=== PATIENT | male | born 1965 ===

== ENCOUNTER 2022-03-07 15:09 | Outpatient (REF) | payer OTHER, SELFPAY ==
[2022-03-07 16:33] LABS: MANUAL DIFF FLAG NO
[2022-03-07 16:44] LABS: Basophils Percent Auto 0.5 % (0-2); Eosinophils Absolute Auto 0.1 X10*3/uL (0.0-0.4); Eosinophils Percent Auto 1.5 % (0-4); Hematocrit 45.3 % (42.0-52.0); Hemoglobin 15.7 g/dl (14.0-18.0); Imm Gran Abs Auto 0.01 X10*3/uL (0.00-0.03); Imm Gran Pct Auto 0.2 % (0.0-0.4); Lymphocytes Absolute Auto 1.6 X10*3/uL (1.2-4.9); Lymphocytes Percent Auto 37.7 % (20-40); Mean Corpuscular HGB Conc 34.7 g/dl (31.0-36.0); Mean Corpuscular Hemoglobin 31.1 pg (27.0-33.0); Mean Corpuscular Volume 89.7 fL (80.0-98.0); Mean Platelet Volume 9.8 fL (9.4-12.4); Monocytes Absolute Auto 0.5 X10*3/uL (0.1-1.2); Monocytes Percent Auto 11.4 % (2-11); Neutrophils Percent Auto 48.7 % (45-73); Platelet Count 126 X10*3/uL (160-400); Red Blood Count 5.05 X10*6/uL (4.60-5.80); Red Cell Distribution Width 12.8 % (11.0-16.0); White Blood Count 4.1 X10*3/uL (4.8-10.8)
[2022-03-07 16:46] LABS: Estimated Average Glucose 105 mg/dL; Hemoglobin A1c % 5.3 %
[2022-03-07 16:58] LABS: Alanine Aminotransferase 95 U/L (0-40); Albumin Level 4.3 g/dL (3.5-5.0); Alkaline Phosphatase 79 U/L (39-117); Anion Gap 15 (12-20); Aspartate Amino Transferase 79 U/L (5-37); Bilirubin Total 0.7 mg/dL (0.0-1.0); Blood Urea Nitrogen 19 mg/dL (9-16); Calcium 9.2 mg/dL (8.4-10.2); Carbon Dioxide 24 mmol/L (22-29); Chloride 102 mmol/L (96-108); Cholesterol 187 mg/dL; Estimated Glomerular Filt Rate > 60; Glucose Random 76 mg/dL (60-115); HDL Cholesterol 62 mg/dL; LDL Cholesterol Calculated 89 mg/dl; Potassium 4.2 mmol/L (3.3-5.1); Sodium 137 mmol/L (135-145); Total Protein 7.8 g/dL (6.5-8.0); Triglycerides 180 mg/dL
[2022-03-15 08:02] LABS: Codeine, Ur NEGATIVE; Hydrocodone, Ur NEGATIVE; Hydromorphone, Ur NEGATIVE; Morphine, Ur NEGATIVE; Norhydrocodone, Ur NEGATIVE; Noroxycodone, Ur NEGATIVE; Oxycodone, Ur NEGATIVE; Oxymorphone, Ur NEGATIVE
== END 2022-03-07 15:10 | disposition home or self-care (01) ==
LOC: HO.HMGCLDS 15:09
PROVIDERS: Visit Provider Nurse Practitioner Psychiatric/Mental Health
DX: Z79.899 Other long term (current) drug therapy (principal)
CPT/HCPCS: 80053; 80061; 80364; 80365; 83036; 85025

== ENCOUNTER 2022-08-31 17:28 | Emergency (ER) | payer OTHER, SELFPAY ==
--- NOTE | ~2022-08-31 | CT_ITS ---
EXAM: CT scan of the head and cervical spine. INDICATION: Reason for Exam head and neck pain s/p fall TECHNIQUE: A noncontrast CT scan was performed from the skull base to the vertex. A noncontrast CT scan of the cervical spine was performed from the base of the skull through T1 at 2.5 mm and 1.25 mm collimation. Coronal and sagittal reformats were obtained at the acquisition workstation. This CT examination was performed using dose optimization techniques as appropriate, variously including the following: *Automated exposure control *Adjustment of mA and/or kV according to patient size (this includes techniques or standardized protocols for targeted exams where dose is matched to indication/reason for exam; i.e. extremities or head) *Use of iterative reconstruction technique DLP: 656 and 407 mGy-cm COMPARISON: None FINDINGS: Head: There is no evidence of acute intracranial hemorrhage or territorial infarction. Vicente-white matter differentiation is preserved. No abnormal mass effect or midline shift. No extra-axial fluid collections. No abnormal attenuation is demonstrated within the brain parenchyma. Scattered periventricular and deep white matter hypodensities consistent with microangiopathy. The ventricles and sulcal spaces are proportional without hydrocephalus. Proportional prominence of the ventricles and sulcal spaces. No acute osseous or soft tissue abnormalities. The mastoid air cells and visualized portions of the paranasal sinuses are well aerated. Cervical Spine: The atlantooccipital and atlantoaxial articulations intact. Moderate disc space narrowing particularly at C3-C4 consistent with degenerative disc disease. Otherwise, there is anatomic alignment of the vertebral bodies and posterior elements. No evidence of acute fracture or subluxation. The vertebral body heights and disc spaces are otherwise maintained. There is no prevertebral soft tissue swelling. The thyroid gland and remaining cervical soft tissues are normal in appearance. The lung apices demonstrate no abnormalities. CT/CT cervical spine wo IV con IMPRESSION: No acute intracranial pathology. No acute fracture cervical spine.
[2022-08-31 17:36] VITALS: BP 142/98; PULSE 107; RESP 18; O2SAT 94; BMI 21.1
--- NOTE | 2022-08-31 17:38 | ED_ITS ---
HPI - Fall General Chief Complaint: Fall Stated Complaint: fall ETOH Time Seen by Provider: 08/31/22 17:31 Source: patient and EMS Mode of arrival: EMS History of Present Illness HPI Narrative: Patient had few drinks earlier today was with his friends in his house lost balance and fell hitting his back of her head to the concrete no loss of son consciousness unsteady on his feet refused C-collar by EMS no vomiting no other complaints patient has a big hematoma with laceration back of his head Related Data Allergies Allergy/AdvReac Type Severity Reaction Status Date / Time acetaminophen Allergy Unknown Verified 03/22/14 00:00 [Tylenol-Codeine #3] codeine [Tylenol-Codeine #3] Allergy Unknown Verified 03/22/14 00:00 No Known Allergies Allergy Unverified 08/02/20 15:02 Review of Systems Review of Systems: Yes all other systems are reviewed and are negative [facility] Social History Social History Advance Directives: No Advance Directives Information Provided: No Physical Exam Vital Signs: Vital Signs: Last Vital Signs Temp 97.7 F 08/31/22 18:10 Pulse 105 H 08/31/22 18:10 Resp 23 H 08/31/22 18:10 BP 124/90 H 08/31/22 18:10 Pulse Ox 93 08/31/22 18:10 O2 Del Method 08/31/22 18:10 O2 Flow Rate 2 08/31/22 18:10 BMI result Body Mass Index 21.1 Appearance: Alert. Oriented X3. No acute distress. Intoxicated Eyes: PERRLA, No Nystagmus HEENT: Pharynx normal. Oral Mucosa moist hematoma with small laceration to back of the head dried blood in the mouth Neck: Normal inspection. Neck supple. No midline tenderness CVS: Normal heart rate and rhythm. Pulses normal. Respiratory: No respiratory distress. Equal air entry bilateral, no wheezing/rales/rhonchi Abdomen: Soft and nontender. Bowel sounds are present, no mass palpable, no CVA tenderness Skin: Skin warm and dry. Normal skin color. Normal skin turgor. Extremities: No lower extremity edema. No calf tenderness Neuro: Oriented X 3. No motor deficit. No sensory deficit.No cerebellar signs , cranial nerves II-XII intact Procedures Laceration Laceration 1: Site: scalp Size (cm): 4 Description: stellate Size (cm): other (8 sivlino) MDM - Fall MDM Narrative Medical decision making narrative: 22;10Patient intoxicated and fell with laceration of the scalp head CT C-spine negative alcohol level was 320 at this time patient is ambulatory and steady gait does not want to stay here for detox evaluation will discharge patient home Lab Data Attestation: I reviewed the patient's lab results. Result diagrams: 08/31/22 18:09 08/31/22 18:09 Labs: Lab Results 08/31/22 08/31/22 08/31/22 Range/Units 18:09 18:09 18:09 WBC 2.7 L (4.8-10.8) X10*3/uL RBC 4.60 (4.60-5.80) X10*6/uL Hgb 15.2 (14.0-18.0) g/dl Hct 43.9 (42.0-52.0) % MCV 95.4 (80.0-98.0) fL MCH 33.0 (27.0-33.0) pg MCHC 34.6 (31.0-36.0) g/dl RDW 14.3 (11.0-16.0) % Plt Count 63 L D (160-400) X10*3/uL MPV 10.1 (9.4-12.4) fL Immature Gran % (Auto) 0.4 (0.0-0.4) % Neut % (Auto) 39.7 L (45-73) % Lymph % (Auto) 43.1 H (20-40) % [place] % (Auto) 14.6 H (2-11) % Eos % (Auto) 1.5 (0-4) % Baso % (Auto) 0.7 (0-2) % Lymph # (Auto) 1.2 (1.2-4.9) X10*3/uL [place] # (Auto) 0.4 (0.1-1.2) X10*3/uL Eos # (Auto) 0.0 (0.0-0.4) X10*3/uL Baso # (Auto) 0.0 (0.0-0.2) X10*3/uL Abs Immat Gran (auto) 0.01 (0.00-0.03) X10*3/uL Absolute Neuts (auto) 1.1 L (2.0-8.3) x10*3/uL Absolute Nucleated RBC 0.000 (0.0-0.012) X10*3/uL Nucleated RBC % (auto) 0.0 (0.0-0.2) /100WBC Sodium 141 (135-145) mmol/L Potassium 4.0 (3.3-5.1) mmol/L Chloride 105 (96-108) mmol/L Carbon Dioxide 22 (22-29) mmol/L Anion Gap 18 (12-20) BUN 11 (9-16) mg/dL Creatinine 0.77 (0.5-1.4) mg/dL Estim Creat Clear Calc 107.3 Estimated GFR > 60 Random Glucose 103 D (60-115) mg/dL Calcium 8.6 D (8.4-10.2) mg/dL Magnesium 2.2 (1.6-2.6) mg/dL Total Bilirubin 0.5 (0.0-1.0) mg/dL AST 99 H (5-37) U/L ALT 74 H (0-40) U/L Alkaline Phosphatase 98 D (39-117) U/L Total Protein 7.5 (6.5-8.0) g/dL Albumin 4.1 (3.5-5.0) g/dL Ethyl Alcohol 320 H* mg/dL Discharge Plan Discharge Clinical Impression: Alcohol intoxication, Head injuries Patient Disposition: Home, Self-Care Instructions: Head Injury (ED), Alcohol Intoxication (ED) Additional Instructions: Do not drink alcohol Staple removal in 7-10 days Care as advised Interventions: ED Discharge Assessment Last Done: 08/31/22 22:14
[2022-08-31 18:10] VITALS: BP 124/90; PULSE 105; RESP 23; TEMP 36.5; O2SAT 93
[2022-08-31 18:18] LABS: MANUAL DIFF FLAG NO
[2022-08-31 18:23] LABS: Basophils Percent Auto 0.7 % (0-2); Eosinophils Percent Auto 1.5 % (0-4); Hematocrit 43.9 % (42.0-52.0); Hemoglobin 15.2 g/dl (14.0-18.0); Imm Gran Abs Auto 0.01 X10*3/uL (0.00-0.03); Imm Gran Pct Auto 0.4 % (0.0-0.4); Lymphocytes Absolute Auto 1.2 X10*3/uL (1.2-4.9); Lymphocytes Percent Auto 43.1 % (20-40); Mean Corpuscular HGB Conc 34.6 g/dl (31.0-36.0); Mean Corpuscular Volume 95.4 fL (80.0-98.0); Mean Platelet Volume 10.1 fL (9.4-12.4); Monocytes Absolute Auto 0.4 X10*3/uL (0.1-1.2); Monocytes Percent Auto 14.6 % (2-11); Neutrophils Absolute Auto 1.1 x10*3/uL (2.0-8.3); Neutrophils Percent Auto 39.7 % (45-73); Red Cell Distribution Width 14.3 % (11.0-16.0); White Blood Count 2.7 X10*3/uL (4.8-10.8)
[2022-08-31 18:28] LABS: Platelet Count 63 X10*3/uL (160-400)
[2022-08-31 18:30] LABS: Ethanol 320 mg/dL
[2022-08-31 18:36] LABS: Alanine Aminotransferase 74 U/L (0-40); Albumin Level 4.1 g/dL (3.5-5.0); Alkaline Phosphatase 98 U/L (39-117); Anion Gap 18 (12-20); Aspartate Amino Transferase 99 U/L (5-37); Bilirubin Total 0.5 mg/dL (0.0-1.0); Blood Urea Nitrogen 11 mg/dL (9-16); Calcium 8.6 mg/dL (8.4-10.2); Carbon Dioxide 22 mmol/L (22-29); Chloride 105 mmol/L (96-108); Creatinine Clr Calc Pharmacy 107.3; Estimated Glomerular Filt Rate > 60; Glucose Random 103 mg/dL (60-115); Magnesium 2.2 mg/dL (1.6-2.6); Sodium 141 mmol/L (135-145); Total Protein 7.5 g/dL (6.5-8.0)
--- NOTE | 2022-08-31 18:41 | PC.NURSE ---
patient a/o to self.etoh in system . unable to asses at this moment has no memory of what happened or what brought him in ED presented to Ed for fall . Labs have been drawn . patient has been to CT . Provider says for patient to sober for discharge .
--- NOTE | 2022-08-31 19:00 | PC.NURSE ---
Patient advised to sit into the bed for safety, patient redirected multiple times by various staff members. Patient was directed to lay on the stretcher by staff and as staff was walking out of the room the patient jumped up OOB and landed on his feet unsteady and fell onto his buttock then backwards onto the floor. +head strike thus opening up the old lac from prior fall today. MD Wheeler aware and in room to see patient. Bleeding controlled, Wound stapled. NO further imaging per MD Wheeler. Patient sitting back in bed but is difficult to redirect and needs multiple verbal coaching. 1:1 sitter at bedside but does not deter patient from trying to jump and run out of room. Recliner provided for comfort but patient jumping out of recliner. Attempting to call family or friend for a ride home. Patient ate a snack.
== END 2022-08-31 22:18 | disposition home or self-care (01) ==
PROVIDERS: Emergency Provider Internal Medicine
DX: S01.01XA Laceration without foreign body of scalp, initial encounter (principal); F10.129 Alcohol abuse with intoxication, unspecified; M54.2 Cervicalgia; R51.9 Headache, unspecified; Y90.8 Blood alcohol level of 240 mg/100 ml or more; W01.0XXA Fall on same level from slipping, tripping and stumbling without subsequent striking against object, initial encounter; Y93.9 Activity, unspecified; Y92.9 Unspecified place or not applicable; Y99.9 Unspecified external cause status; Z79.899 Other long term (current) drug therapy
CPT/HCPCS: 12002; 36415; 70450; 72125; 80053; 82077; 83735; 85025; 99283

== ENCOUNTER 2022-09-10 18:09 | Emergency (ER) | payer OTHER, SELFPAY | END 2022-09-10 20:06 | disposition left against medical advice (07) | PROVIDERS: Emergency Provider Emergency Medicine | DX: Z48.02 Encounter for removal of sutures (principal) ==

== ENCOUNTER 2023-01-25 17:03 | Emergency (ER) | payer OTHER, SELFPAY ==
--- NOTE | ~2023-01-25 | CT_ITS ---
Indication: Trauma EXAMINATION: CT of the brain and cervical spine. This CT examination was performed using dose optimization techniques as appropriate, variously including the following: *Automated exposure control *Adjustment of mA and/or kV according to patient size (this includes techniques or standardized protocols for targeted exams where dose is matched to indication/reason for exam; i.e. extremities or head) *Use of iterative reconstruction technique. Radiation dose 913. Comparison previous dated 08/31/2022. Cervical spine; There is limitation from motion in the upper cervical region. Given this there is no evidence for acute fracture or dislocation. CT brain; No midline shift. No mass effect. No hemorrhage. The basal cisterns appear patent. The posterior fossa is grossly within normal limits. No extra-axial collection. Review of the bone windows does not demonstrate evidence for fracture. CT/CT head/brain wo IV con IMPRESSION: There is motion which limits evaluation of the upper cervical spine. If indicated consider repeat scanning. Otherwise no acute fracture or dislocation is seen. Negative acute noncontrast CT of the brain.
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
--- NOTE | ~2023-01-25 | CT_ITS ---
Indication: Trauma EXAMINATION: CT of the brain and cervical spine. This CT examination was performed using dose optimization techniques as appropriate, variously including the following: *Automated exposure control *Adjustment of mA and/or kV according to patient size (this includes techniques or standardized protocols for targeted exams where dose is matched to indication/reason for exam; i.e. extremities or head) *Use of iterative reconstruction technique. Radiation dose 913. Comparison previous dated 08/31/2022. Cervical spine; There is limitation from motion in the upper cervical region. Given this there is no evidence for acute fracture or dislocation. CT brain; No midline shift. No mass effect. No hemorrhage. The basal cisterns appear patent. The posterior fossa is grossly within normal limits. No extra-axial collection. Review of the bone windows does not demonstrate evidence for fracture. CT/CT cervical spine wo IV con IMPRESSION: There is motion which limits evaluation of the upper cervical spine. If indicated consider repeat scanning. Otherwise no acute fracture or dislocation is seen. Negative acute noncontrast CT of the brain.
[2023-01-25 17:07] VITALS: BP 140/90; PULSE 100; O2SAT 95
--- NOTE | 2023-01-25 17:07 | ECG_ITS ---
Test Reason : WEAKNESS/FALL Blood Pressure : / mmHG Vent. Rate : 098 BPM Atrial Rate : 098 BPM P-R Int : 150 ms QRS Dur : 134 ms QT Int : 368 ms P-R-T Axes : 048 054 046 degrees QTc Int : 469 ms Normal sinus rhythm Non-specific intra-ventricular conduction block Nonspecific T wave abnormality Abnormal ECG No previous ECGs available Referred By: Farhad Elam Electronically Signed By:Blayne Donovan
[2023-01-25 17:08] VITALS: BP 119/87; PULSE 99; RESP 16; TEMP 36.4; O2SAT 91; BMI 27.4
--- NOTE | 2023-01-25 17:15 | PC.NURSE ---
patient awake alert to self only, pt etoh, pt encouraged to stay in the bed as the patient is attempting to get oob and ambulate- pt has unsteady gait at this time.
--- NOTE | 2023-01-25 17:26 | ED_ITS ---
HPI - Fall General Chief Complaint: Fall Stated Complaint: etoh/fall Time Seen by Provider: 01/25/23 17:07 Source: patient and EMS Mode of arrival: EMS Limitations: other (Intoxicated) History of Present Illness HPI Narrative: 57-year-old male presents the emergency department with alcohol intoxication and suspected fall, patient extremely intoxicated has been drinking all day unable to tell me how much she has been drinking, fell hit his face, unsure of loss of consciousness. Patient poor historian tells me he is not on a blood thinner. Unable to verbalize if he has medical complaints or not. Limited history and unable to obtain accurate review of systems secondary to acute alcohol intoxication. Patient arrives with a GCS of 15 however. Related Data Allergies Allergy/AdvReac Type Severity Reaction Status Date / Time acetaminophen Allergy Unknown Verified 03/22/14 00:00 [Tylenol-Codeine #3] codeine [Tylenol-Codeine #3] Allergy Unknown Verified 03/22/14 00:00 No Known Allergies Allergy Unverified 08/02/20 15:02 Review of Systems Review of Systems: Yes Unobtainable due to mental status PMFSH Past Medical History Attestation statement: The following information was validated with the patient. Source: old records reviewed and nursing notes reviewed Social History Social History Alcohol intake: current Alcohol intake frequency: 3 or more drinks per day Smoked in Last 30 Days: No Use of substances other than those prescribed or required for medical reasons: Yes Substance Use Type: Marijuana Advance Directives: No Advance Directives Information Provided: No Physical Exam Vital Signs: Vital Signs: Last Vital Signs Temp 97.6 F 01/25/23 17:08 Pulse 99 01/25/23 17:08 Resp 16 01/25/23 17:08 BP 119/87 01/25/23 17:08 Pulse Ox 91 L 01/25/23 17:08 O2 Del Method 01/25/23 17:08 BMI result Body Mass Index 27.4 vss Appearance: Alert.? Oriented X3.? No acute distress.? Head: Normocephalic, no step-offs or deformities + abrasions to b/l sides of face Eyes: Pupils equal, round and reactive to light.? ENT: Pharynx normal.? Neck: Normal inspection.? Neck supple.? CVS: Normal heart rate and rhythm.? Pulses normal.? Respiratory: No respiratory distress.? Breath sounds normal.? Abdomen: Soft and nontender.? Skin: Skin warm and dry.? Normal skin color.? Normal skin turgor.? Extremities: No lower extremity edema.? No calf ttp. 5/5 strength to bilateral upper and lower extremities Back: No midline tenderness, no C-spine tenderness, full range of motion, no CVA tenderness bilaterally Neuro: Oriented X 3.? No motor deficit.? No sensory deficit. CN 2-12 intact Course Reevaluation(s) Reevaluation #1: CBC appears to be around patient's baseline. With a thrombocytopenia. Chemistry without electrolyte abnormalities requiring intervention. Transaminases elevated chronically likely secondary to ethanol use. Troponin negative, EKG nonischemic. Ethanol level 366. COVID negative. CT of cervical spine unremarkable slightly limited by the motion however no acute fractures or dislocations, patient does not want another 1, negative acute noncontrast CT of the brain. There is a 1.6 irregularly solid lung nodule in the right upper lobe cannot rule out neoplasm, educated patient on this attached results to discharge elevation of left hemidiaphragm unchanged from May 2013, no evidence of solid organ injury. Partial compression fracture of L1 noted of indeterminate age educated patient on this diagnosis in follow-up, will have him see [facility], degenerative disc itis also noted. Patient has no focal neuro deficits no signs of cord compression. Patient agitated and would like to go home however intoxicated this is not safe. I did try to call both of patient's em ergency contacts without success. Will continue to try calling. Patient can be discharged home with safe ride. Educated patient on diagnosis and treatment plan, answered all question, patient verbalizes understanding. At this time patient will be discharged home, advised to return with new or worsening symptoms. Educated on worrisome signs and symptoms and when to return. At this time I feel comfortable discharge home. Offered patient detox he is refusing. Patient will be placed into observation until he finds a sober ride. Educated patient on diagnosis and treatment plan, answered all question, patient verbalizes understanding. At this time patient will be discharged home, advised to return with new or worsening symptoms. Educated on worrisome signs and symptoms and when to return. At this time I feel comfortable discharge home. Time: 19:37 Medical Decision Making Medical Decision Making [facility] Narrative: [id number] 57-year-old male presents with alcohol intoxication with suspected fall, unclear history, unable to obtain review of systems patient extremely intoxicated. States he was drinking all day. Physical exam with abrasions to face. Neuro nonfocal. Regular rate and rhythm. Lungs clear. Abdomen soft nontender nondistended. Likely alcohol intoxication. Will rule out traumatic injuries and head, cervical spine, chest, abdomen and pelvis. Will also rule out polysubstance abuse and electrolyte abnormalities. Plan at this time labs, imaging, urine. To note, patient adamantly refusing IV therefore ideally scans would be done with IV contrast however patient adamantly refusing. Will obtain dry scans. He is agreeable to this. Differential Diagnosis Differential Diagnoses: The differential diagnosis associated with the presentation includes Likely alcohol intoxication. Will rule out traumatic injuries and head, cervical spine, chest, abdomen and pelvis. Will also rule out polysubstance abuse and electrolyte abnormalities. Admission/Observation Consideration of admission/observation: Escalation of care including admission/observation considered Lab Data 01/25/23 18:27 01/25/23 18:27 Labs: Lab Results 01/25/23 01/25/23 01/25/23 Range/Units 18:27 18:27 18:27 WBC 2.8 L (4.8-10.8) X10*3/uL RBC 4.77 (4.60-5.80) X10*6/uL Hgb 14.7 (14.0-18.0) g/dl Hct 44.1 (42.0-52.0) % MCV 92.5 (80.0-98.0) fL MCH 30.8 (27.0-33.0) pg MCHC 33.3 (31.0-36.0) g/dl RDW 15.3 (11.0-16.0) % Plt Count 101 L D (160-400) X10*3/uL MPV 10.3 (9.4-12.4) fL Immature Gran % (Auto) 0.4 (0.0-0.4) % Neut % (Auto) 55.4 (45-73) % Lymph % (Auto) 35.3 (20-40) % [place] % (Auto) 7.8 (2-11) % Eos % (Auto) 0.4 (0-4) % Baso % (Auto) 0.7 (0-2) % Lymph # (Auto) 1.0 L (1.2-4.9) X10*3/uL [place] # (Auto) 0.2 (0.1-1.2) X10*3/uL Eos # (Auto) 0.0 (0.0-0.4) X10*3/uL Baso # (Auto) 0.0 (0.0-0.2) X10*3/uL Abs Immat Gran (auto) 0.01 (0.00-0.03) X10*3/uL Absolute Neuts (auto) 1.6 L (2.0-8.3) x10*3/uL Absolute Nucleated RBC 0.000 (0.0-0.012) X10*3/uL Nucleated RBC % (auto) 0.0 (0.0-0.2) /100WBC Smear Tech's Comments VERIFIED PT (10.0-13.1) SEC INR (0.9-1.1) Sodium 139 (135-145) mmol/L Potassium 3.6 (3.3-5.1) mmol/L Chloride 103 (96-108) mmol/L Carbon Dioxide 25 (22-29) mmol/L Anion Gap 15 (12-20) BUN 9 (9-16) mg/dL Creatinine 0.73 (0.5-1.4) mg/dL Estim Creat Clear Calc 110.3 Estimated GFR > 60 Random Glucose 137 H (60-115) mg/dL Calcium 8.1 L (8.4-10.2) mg/dL Magnesium 2.2 (1.6-2.6) mg/dL Total Bilirubin 0.5 (0.0-1.0) mg/dL AST 89 H (5-37) U/L ALT 60 H (0-40) U/L Alkaline Phosphatase 78 (39-117) U/L Troponin I High Sens (<3.5-35.0) ng/L Total Protein 7.5 (6.5-8.0) g/dL Albumin 3.9 (3.5-5.0) g/dL Ethyl Alcohol mg/dL COVID-19 (NOLAN) Negative (Negative) COVID-19 Clin Com See Note 01/25/23 01/25/23 01/25/23 Range/Units 18:27 18:27 18:27 WBC (4.8-10.8) X10*3/uL RBC (4.60-5.80) X10*6/uL Hgb (14.0-18.0) g/dl Hct (42.0-52.0) % MCV (80.0-98.0) fL MCH (27.0-33.0) pg MCHC (31.0-36.0) g/dl RDW (11.0-16.0) % Plt Count (160-400) X10*3/uL MPV (9.4-12.4) fL Immature Gran % (Auto) (0.0-0.4) % Neut % (Auto) (45-73) % Lymph % (Auto) (20-40) % [place] % (Auto) (2-11) % Eos % (Auto) (0-4) % Baso % (Auto) (0-2) % Lymph # (Auto) (1.2-4.9) X10*3/uL [place] # (Auto) (0.1-1.2) X10*3/uL Eos # (Auto) (0.0-0.4) X10*3/uL Baso # (Auto) (0.0-0.2) X10*3/uL Abs Immat Gran (auto) (0.00-0.03) X10*3/uL Absolute Neuts (auto) (2.0-8.3) x10*3/uL Absolute Nucleated RBC (0.0-0.012) X10*3/uL Nucleated RBC % (auto) (0.0-0.2) /100WBC Smear Tech's Comments PT 11.3 (10.0-13.1) SEC INR 1.0 (0.9-1.1) Sodium (135-145) mmol/L Potassium (3.3-5.1) mmol/L Chloride (96-108) mmol/L Carbon Dioxide (22-29) mmol/L Anion Gap (12-20) BUN (9-16) mg/dL Creatinine (0.5-1.4) mg/dL Estim Creat Clear Calc Estimated GFR Random Glucose (60-115) mg/dL Calcium (8.4-10.2) mg/dL Magnesium (1.6-2.6) mg/dL Total Bilirubin (0.0-1.0) mg/dL AST (5-37) U/L ALT (0-40) U/L Alkaline Phosphatase (39-117) U/L Troponin I High Sens < 3.5 (<3.5-35.0) ng/L Total Protein (6.5-8.0) g/dL Albumin (3.5-5.0) g/dL Ethyl Alcohol 366 H* mg/dL COVID-19 (NOLAN) (Negative) COVID-19 Clin Com Discharge Plan Discharge Clinical Impression: Alcohol intoxication, Concussion, Fall, Closed compression fracture of L1 vertebra, Lung nodule Patient Disposition: Home, Self-Care Instructions: Concussion (ED), Post Concussion Syndrome (ED), Fall Prevention (ED) Additional Instructions: Take your medications as prescribed. If you were prescribed antibiotics today, it is important that you take your medication to their entirety, do not skip any doses, do not finish them early. Follow-up with your primary care provider this week. Return to the emergency department with new or worsening symptoms. Such as fevers, chills, chest pain, shortness of breath, nausea, vomiting, dizziness, headache, vision changes, lethargy In case of emergency call 911 CT/CT abdomen pelvis and chest wo IV con IMPRESSION: ? *? There is a 1.6 cm slightly irregular solid noncalcified lung nodule right upper lobe. Cannot rule out neoplasm. Would recommend correlation with follow-up contrast enhanced CT scan or PET/CT. ? *? Marked elevation of left hemidiaphragm, the stomach and the spleen are almost entirely in the chest, this is chronic and seen on the chest x-ray from May 2013. ? *? No CT evidence of solid organ injury. Exam is limited due to lack of contrast. ? *? There is partial compression fracture superior endplate of L1 indeterminant age. ? *? Degenerative discitis reaction in the endplates at L4-L5 and L5-S1. ? *? Large emphysematous bleb left upper lobe 6 cm. ? *? Hypodense liver suggesting hepatic steatosis. ? *? Coronary calcifications. ? Various management parameters for solitary pulmonary nodules are in the literature. According to the UPDATED 2017 Fleischner Society recommendations, the advised follow-up imaging for a single solid nodule measuring 8 mm or greater is:? Consider CT, PET/CT, or tissue sampling at 3 months. ? Reference: Guidelines for Management of Incidental Pulmonary Nodules Detected on CT Images: From the Fleischner Society 2017. ? (Referring physician staff is being called, to be alerted of the above findings and recommendations.) ? KP CT/CT head/brain in cervical spine wo IV con IMPRESSION: There is motion which limits evaluation of the upper cervical spine. If indicated consider repeat scanning. Otherwise no acute fracture or dislocation is seen. ? Negative acute noncontrast CT of the brain. Referrals: Physician,Unknown J [Primary Care Provider] - 2 days Stand Alone Forms: Work/School Release
--- NOTE | 2023-01-25 18:15 | PC.NURSE ---
pt to ct scan
--- NOTE | 2023-01-25 18:28 | PC.NURSE ---
labs drawn, VSS.
[2023-01-25 18:34] LABS: Basophils Percent Auto 0.7 % (0-2); Imm Gran Abs Auto 0.01 X10*3/uL (0.00-0.03); Imm Gran Pct Auto 0.4 % (0.0-0.4); MANUAL DIFF FLAG SCAN; Monocytes Absolute Auto 0.2 X10*3/uL (0.1-1.2); PLT CLUMP 1; SCAN SMEAR FLAG 1
[2023-01-25 18:36] LABS: Eosinophils Percent Auto 0.4 % (0-4); Hematocrit 44.1 % (42.0-52.0); Hemoglobin 14.7 g/dl (14.0-18.0); Lymphocytes Percent Auto 35.3 % (20-40); Mean Corpuscular HGB Conc 33.3 g/dl (31.0-36.0); Mean Corpuscular Hemoglobin 30.8 pg (27.0-33.0); Mean Corpuscular Volume 92.5 fL (80.0-98.0); Mean Platelet Volume 10.3 fL (9.4-12.4); Monocytes Percent Auto 7.8 % (2-11); Neutrophils Absolute Auto 1.6 x10*3/uL (2.0-8.3); Neutrophils Percent Auto 55.4 % (45-73); Red Blood Count 4.77 X10*6/uL (4.60-5.80); Red Cell Distribution Width 15.3 % (11.0-16.0)
[2023-01-25 18:39] LABS: Platelet Count 101 X10*3/uL (160-400); White Blood Count 2.8 X10*3/uL (4.8-10.8)
[2023-01-25 18:40] LABS: Prothrombin Time 11.3 SEC (10.0-13.1); SLIDE REVIEW VERIFIED
[2023-01-25 18:46] LABS: Ethanol 366 mg/dL
[2023-01-25 18:47] LABS: COVID-19 Test Negative (Negative); IDNOW Serial# BCCEAD1C
[2023-01-25 18:48] LABS: Alanine Aminotransferase 60 U/L (0-40); Albumin Level 3.9 g/dL (3.5-5.0); Alkaline Phosphatase 78 U/L (39-117); Anion Gap 15 (12-20); Aspartate Amino Transferase 89 U/L (5-37); Bilirubin Total 0.5 mg/dL (0.0-1.0); Blood Urea Nitrogen 9 mg/dL (9-16); Calcium 8.1 mg/dL (8.4-10.2); Carbon Dioxide 25 mmol/L (22-29); Chloride 103 mmol/L (96-108); Creatinine Clr Calc Pharmacy 110.3; Estimated Glomerular Filt Rate > 60; Glucose Random 137 mg/dL (60-115); Magnesium 2.2 mg/dL (1.6-2.6); Potassium 3.6 mmol/L (3.3-5.1); Sodium 139 mmol/L (135-145); Total Protein 7.5 g/dL (6.5-8.0)
--- NOTE | 2023-01-25 18:53 | PC.NURSE ---
patient is attempting to ambulate, pt states he drank fireball, pt given a turkey sandwich to eat but is stating he is leaving because he is working in the morning. this nurse attempting to keep patient from trying to leave and stated he needed to eat and sober up.
[2023-01-25 18:57] LABS: Troponin-I High Sensitivity < 3.5 ng/L (<3.5-35.0)
--- NOTE | 2023-01-25 20:54 | PC.NURSE ---
patient awake/alert to person only- pt continuously asking when he can go home, pt was again reoriented to his place and discussed that he was unable to leave until he had a sober ride home or he was clinically sober. pt was unable to give a valid phone number to call, states his family is in [place] and he is living in a motel in [place]. security has been called to assist with patient as he is again requesting to speak with them about his departure.
[2023-01-26] MEDS: Nicotine 21 MG PATCH.TD24 TRANSDERMA (03:19)
[2023-01-26] MEDS: Ibuprofen 600 MG TABLET PO (03:19)
[2023-01-26 04:12] VITALS: BP 126/83; PULSE 86; RESP 17; TEMP 37.1; O2SAT 94
== END 2023-01-26 05:54 | disposition home or self-care (01) ==
PROVIDERS: Physician Assistant; Emergency Provider Emergency Medicine
DX: S06.0XAA Concussion with loss of consciousness status unknown, initial encounter (principal); S32.019A Unspecified fracture of first lumbar vertebra, initial encounter for closed fracture; F10.129 Alcohol abuse with intoxication, unspecified; R91.1 Solitary pulmonary nodule; D69.6 Thrombocytopenia, unspecified; Y90.8 Blood alcohol level of 240 mg/100 ml or more; R51.9 Headache, unspecified; M54.2 Cervicalgia; M54.50 Low back pain, unspecified; M54.6 Pain in thoracic spine; R10.9 Unspecified abdominal pain; W01.0XXA Fall on same level from slipping, tripping and stumbling without subsequent striking against object, initial encounter; Y93.9 Activity, unspecified; Y92.9 Unspecified place or not applicable; Y99.9 Unspecified external cause status; Z20.822 Contact with and (suspected) exposure to COVID-19; Z20.828 Contact with and (suspected) exposure to other viral communicable diseases; Z79.899 Other long term (current) drug therapy; Z71.41 Alcohol abuse counseling and surveillance of alcoholic
CPT/HCPCS: 36415; 70450; 71250; 72125; 74176; 80053; 82077; 83735; 84484; 85025; 85610; 87635; 93005; 99285

== ENCOUNTER 2023-03-14 21:09 | Emergency (ER) | payer OTHER, SELFPAY ==
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
[2023-03-14 21:12] VITALS: BP 142/96; PULSE 88; RESP 16; TEMP 36.6; O2SAT 94; O2SAT 96; BMI 24.1
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
--- NOTE | 2023-03-14 21:54 | PC.NURSE ---
pt refuses lab and ekg md and nurse aware
--- NOTE | 2023-03-14 22:19 | MHC.EDTECH ---
pt refusing labs and EKG
[2023-03-14 22:57] VITALS: BP 119/76; PULSE 82; RESP 18; O2SAT 90
[2023-03-15 02:41] VITALS: BP 109/65; PULSE 96; RESP 16; O2SAT 92
[2023-03-15 08:38] VITALS: BP 128/83; PULSE 82; RESP 16; TEMP 36.9; O2SAT 94
== END 2023-03-15 11:32 | disposition home or self-care (01) ==
PROVIDERS: Emergency Provider Emergency Medicine
DX: F10.120 Alcohol abuse with intoxication, uncomplicated (principal); Y90.9 Presence of alcohol in blood, level not specified; S00.81XA Abrasion of other part of head, initial encounter; V18.0XXA Pedal cycle driver injured in noncollision transport accident in nontraffic accident, initial encounter; Y93.55 Activity, bike riding; Y92.414 Local residential or business street as the place of occurrence of the external cause; Y99.9 Unspecified external cause status
CPT/HCPCS: 70450; 72125; 99284

== ENCOUNTER 2023-04-02 10:06 | Emergency (ER) | payer OTHER, SELFPAY ==
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
[2023-04-02 10:21] VITALS: BP 134/71; PULSE 128; PULSE 142; RESP 18; TEMP 36.6; O2SAT 93; BMI 22.6
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
--- NOTE | 2023-04-02 10:59 | PC.NURSE ---
PT REFUSING LAB WORK, DESPITE MULTIPLE STAFF ATTEMPTING TO OBTAIN
[2023-04-02] MEDS: chlordiazePOXIDE HCl 25 MG CAPSULE PO (11:19)
--- NOTE | 2023-04-02 11:44 | PC.NURSE ---
PT WALKING AROUND THE ED HE IS AWAKE AND WAS AGREEABLE TO MEDICATION. HE CONTINUES TO REFUSE LAB WORK AND POC.
[2023-04-02 11:45] VITALS: PULSE 121; RESP 18
[2023-04-02 11:52] VITALS: BP 120/77; PULSE 108; RESP 16; O2SAT 94
--- NOTE | 2023-04-02 12:31 | PC.NURSE ---
PT APPEARS BETTER, NO LONGER DIAPHORETIC AND LESS ANXIOUS, AWAITING CT RESULTS
== END 2023-04-02 13:00 | disposition left against medical advice (07) ==
PROVIDERS: Emergency Provider Student in an Organized Health Care Education/Training Program; PCP Internal Medicine
DX: F10.10 Alcohol abuse, uncomplicated (principal); Y90.9 Presence of alcohol in blood, level not specified; S00.83XA Contusion of other part of head, initial encounter; S50.311A Abrasion of right elbow, initial encounter; W19.XXXA Unspecified fall, initial encounter; Y93.9 Activity, unspecified; Y92.410 Unspecified street and highway as the place of occurrence of the external cause; Y99.9 Unspecified external cause status
CPT/HCPCS: 70450; 99284

== ENCOUNTER 2023-04-12 12:55 | Emergency (ER) | payer OTHER, SELFPAY ==
[2023-04-12 13:07] VITALS: BP 192/100
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
[2023-04-12 13:11] VITALS: BP 142/70; PULSE 120; RESP 16; TEMP 36.6; O2SAT 92; BMI 24.8
[2023-04-12] MEDS: 0.9 % Sodium Chloride 1,000 ML 999 ML IV (14:23)
[2023-04-12 14:50] VITALS: BP 130/80; PULSE 105; RESP 16; TEMP 36.7; O2SAT 94
== END 2023-04-12 14:53 | disposition home or self-care (01) ==
PROVIDERS: Emergency Provider Internal Medicine; PCP Internal Medicine
DX: T67.5XXA Heat exhaustion, unspecified, initial encounter (principal); X58.XXXA Exposure to other specified factors, initial encounter; Y93.9 Activity, unspecified; Y92.9 Unspecified place or not applicable; Y99.9 Unspecified external cause status
CPT/HCPCS: 99283

== ENCOUNTER 2023-04-15 19:40 | Emergency (ER) | payer OTHER, SELFPAY ==
--- NOTE | 2023-04-15 10:21 | ECG_ITS ---
Test Reason : POSSIBLE OD Blood Pressure : / mmHG Vent. Rate : 098 BPM Atrial Rate : 098 BPM P-R Int : 138 ms QRS Dur : 102 ms QT Int : 372 ms P-R-T Axes : 029 049 056 degrees QTc Int : 474 ms Normal sinus rhythm Minimal voltage criteria for LVH, may be normal variant ( Sokolow-Mckeon ) Septal infarct , age undetermined Abnormal ECG When compared with ECG of 25-JAN-2023 17:43, Septal infarct is now Present Non-specific change in ST segment in Lateral leads Referred By: Imani Segovia Electronically Signed By:CONCHIS FLOWERS MD
[2023-04-15 19:54] VITALS: BP 122/88; BP 136/84; PULSE 101; PULSE 107; RESP 18; TEMP 37; O2SAT 98; O2SAT 99; BMI 24.4
--- NOTE | 2023-04-15 20:02 | ECG_ITS ---
Test Reason : CHEST PAIN Blood Pressure : / mmHG Vent. Rate : 091 BPM Atrial Rate : 091 BPM P-R Int : 144 ms QRS Dur : 088 ms QT Int : 360 ms P-R-T Axes : 065 061 065 degrees QTc Int : 442 ms Normal sinus rhythm Septal infarct (cited on or before 15-APR-2023) Abnormal ECG When compared with ECG of 15-APR-2023 19:51, No significant change was found Referred By: Generic ED Physician Electronically Signed By:CONCHIS FLOWERS MD
[2023-04-15 20:03] VITALS: BP 122/88; PULSE 93; RESP 18; TEMP 36.4; O2SAT 93
--- NOTE | 2023-04-15 20:07 | MHC.EDTECH ---
This Tech assumed care of this PT upon arrival. According to EMS Pt was unresponsive and given Narcan. Pt allowed this Tech to Perform vitals EKG and place him on cardiac cath rn. Pt is very upset and refusing bloodwork at the moment and refusing to change into hospital gown. Pt also claims his work knife and duffle bag is missing
--- NOTE | 2023-04-15 21:05 | ED.GENADULT ---
HPI - General Adult General Chief complaint: General Medical Stated complaint: overdose Time Seen by Provider: 04/15/23 20:38 Source: patient and EMS Mode of arrival: EMS History of Present Illness HPI narrative: 58-year-old male who states that he had a couple nips after work and was sleeping because he was tired. As per EMS report patient had been found unresponsive by a bystander with blue lips and slumped over. Patient states he has used opioids in over 14 years. Denies suicidal ideation and is not interested in detox, he wants to leave. Related Data Previous Rx's Medication Instructions Recorded ibuprofen 600 mg tablet 600 mg PO Q6H PRN fever or pain 04/12/23 #30 tabs Allergies Allergy/AdvReac Type Severity Reaction Status Date / Time acetaminophen Allergy Unknown Verified 03/22/14 00:00 [Tylenol-Codeine #3] codeine [Tylenol-Codeine #3] Allergy Unknown Verified 03/22/14 00:00 No Known Allergies Allergy Unverified 08/02/20 15:02 Review of Systems Review of Systems: Pertinent positives and negatives as stated in HPI PMFSH Past Medical History Source: nursing notes reviewed Medical History Alcohol abuse Social History Social History Alcohol intake: current Alcohol intake frequency: 3 or more drinks per day Alcohol type: other Substance Use Type: Marijuana Advance Directives: No Advance Directives Information Provided: No Physical Exam ED Vital Signs: Vital Signs - 24 hr 04/15/23 19:54 04/15/23 20:03 Temperature 98.6 F 97.6 F Pulse Rate 101 H 93 Respiratory Rate 18 18 Blood Pressure 122/88 122/88 Pulse Oximetry 99 93 Oxygen Delivery Method Room Air Room Air BMI result Body Mass Index 24.4 VITAL SIGNS: Reviewed. GENERAL: Well developed, well nourished, in no acute distress. HEAD: Normocephalic/atraumatic EYES: PERRLA, EOMI EARS: Ext canals without abnormality NOSE: Nares patent bilateral OROPHARYNX: no oral lesions noted, posterior pharynx clear NECK: Supple, no adenopathy LUNGS: Normal breath sounds. No adventitious sounds or accessory muscle use. SpO2<99> CARDIOVASCULAR: Regular rate and rhythm without noted murmurs. ABDOMEN: Soft, non-tender, non-distended with bowel sounds. MUSCULOSKELETAL: No tenderness, deformities, or effusions noted on gross inspection. EXTREMITIES: No cyanosis, clubbing or edema. SKIN: Inspection of the skin reveals no rashes NEUROLOGIC: Alert and oriented x 4. Strength and sensation to light touch were grossly intact x 4. Medical Decision Making Medical Decision Making [facility] Narrative: 58-year-old male found unresponsive, denies suicidal ideation denies wanting detox and denies any use substances other than alcohol. He is noted to ambulate with a steady gait, he is demanding to leave. Patient is otherwise hemodynamically stable for discharge. Differential Diagnosis Please see the discussion above Discharge Plan Discharge Clinical Impression: Overdose Patient Disposition: Home, Self-Care Instructions: Adult Overdose (ED) Additional Instructions: Please follow-up with your primary care provider next 1-2 days and return to the ER for any worsening symptoms. Prescriptions: No Action ibuprofen 600 mg tablet 600 mg PO Q6H PRN (Reason: fever or pain) Qty: 30 0RF
--- NOTE | 2023-04-15 21:36 | MHC.EDTECH ---
PT refused this tech to draw labs. RN made aware. Pt given 2 sandwiches and milk per request
--- NOTE | 2023-04-15 22:28 | MHC.EDTECH ---
Pt complained of chest pain when given his Discharge papers by RN. This Tech Performed a repeat EKG and handed it to the provider
== END 2023-04-15 22:40 | disposition home or self-care (01) ==
PROVIDERS: Emergency Provider Student in an Organized Health Care Education/Training Program
DX: R40.4 Transient alteration of awareness (principal); T50.901A Poisoning by unspecified drugs, medicaments and biological substances, accidental (unintentional), initial encounter; Y92.414 Local residential or business street as the place of occurrence of the external cause; F12.90 Cannabis use, unspecified, uncomplicated; F10.10 Alcohol abuse, uncomplicated; Y90.9 Presence of alcohol in blood, level not specified
CPT/HCPCS: 93005; 99283; 99284

== ENCOUNTER 2023-04-19 14:31 | Emergency (ER) | payer OTHER, SELFPAY ==
[2023-04-19 14:45] VITALS: BP 138/71; PULSE 150; O2SAT 75
[2023-04-19 15:02] VITALS: BP 86/66; PULSE 125; RESP 16; TEMP 36.4; O2SAT 91; BMI 27.3
[2023-04-19 15:25] VITALS: BP 105/66; PULSE 128; RESP 24; TEMP 36.5
--- NOTE | 2023-04-19 15:30 | PC.NURSE ---
belongings secured in [place].
--- NOTE | 2023-04-19 15:37 | MHC.EDTECH ---
BELONGINGS IN [place]
[2023-04-19 15:45] VITALS: BP 109/73; PULSE 116; RESP 18; TEMP 36.8; O2SAT 96
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
--- NOTE | 2023-04-19 16:52 | PC.NURSE ---
per providers pt refusing all treatment and wishing to leave ama, providers have spoken at length to patient about concequences of leaving without treatment and were unable to change their mind.
--- NOTE | 2023-04-19 17:20 | MHC.EDTECH ---
LIAM [facility] [employer]OVER[employer] RN KATLIN IS AWARE OF PATIENT REFUSING ANY WORK UP TO BE DONE .
[2023-04-19 17:22] VITALS: BP 120/86; PULSE 103; RESP 16; TEMP 36.8; O2SAT 98
== END 2023-04-19 17:41 | disposition left against medical advice (07) ==
PROVIDERS: Emergency Provider Emergency Medicine; PCP Internal Medicine
DX: S80.211A Abrasion, right knee, initial encounter (principal); R00.0 Tachycardia, unspecified; F10.129 Alcohol abuse with intoxication, unspecified; V19.9XXA Pedal cyclist (driver) (passenger) injured in unspecified traffic accident, initial encounter; Y93.9 Activity, unspecified; Y92.410 Unspecified street and highway as the place of occurrence of the external cause; Y99.9 Unspecified external cause status; Y90.9 Presence of alcohol in blood, level not specified
CPT/HCPCS: 99283; 99284

== ENCOUNTER 2023-05-09 22:43 | Emergency (ER) | payer OTHER, SELFPAY ==
[2023-05-09 22:57] VITALS: BP 91/73; PULSE 88; RESP 16; TEMP 36.7; O2SAT 95; BMI 26.7
--- NOTE | 2023-05-09 23:11 | PC.NURSE ---
security present and checking pt for any substances on him.
--- NOTE | 2023-05-10 | MHC.EDTECH ---
Patient refused lab draw twice. Stating that he is not here for that.
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
--- NOTE | 2023-05-10 02:47 | PC.NURSE ---
sleeping comfortably, no distress. waiting sobriety.
== END 2023-05-10 07:11 | disposition home or self-care (01) ==
PROVIDERS: Emergency Provider Emergency Medicine Emergency Medical Services
DX: F10.220 Alcohol dependence with intoxication, uncomplicated (principal); Y90.9 Presence of alcohol in blood, level not specified; F12.90 Cannabis use, unspecified, uncomplicated
CPT/HCPCS: 99284

== ENCOUNTER 2023-05-30 19:11 | Emergency (ER) | payer OTHER, SELFPAY ==
--- NOTE | ~2023-05-30 | CT_ITS ---
EXAMINATION: CT HEAD WITHOUT CONTRAST CT CERVICAL SPINE WITHOUT CONTRAST CLINICAL INFORMATION: Fall. EtOH. COMPARISON: CT head from 04/02/2023. CT head and cervical spine from 03/14/2023. TECHNIQUE: Contiguous axial imaging was performed from the skull base to vertex without intravenous administration of contrast. Contiguous axial imaging was performed from the upper chest through the skull base without intravenous administration of contrast. Coronal and sagittal reformats were obtained at the acquisition workstation. This CT examination was performed using dose optimization techniques as appropriate, variously including the following: *Automated exposure control. *Adjustment of mA and/or kV according to patient size (this includes techniques or standardized protocols for targeted exams where dose is matched to indication/reason for exam; i.e. extremities or head). *Use of iterative reconstruction technique. DLP: 1035 mGy-cm FINDINGS: There is no evidence of acute intracranial hemorrhage or edematous territorial infarction. Vicente-white matter differentiation is preserved. There is no abnormal attenuation within the brain parenchyma. The ventricles are normal in morphology and size. No evidence for obstructive hydrocephalus. No abnormal mass effect or midline shift. No extra-axial fluid collections. Calcific atherosclerotic disease of the intracranial internal carotid and vertebral arteries. No hyperdense vessel sign. No acute soft tissue or osseous abnormalities. The mastoid air cells and visualized paranasal sinuses are clear. The patient is largely edentulous. Cervical Spine: The atlantooccipital and atlantoaxial articulations remain well aligned. Mild degenerative retrolistheses of L4 on L5 and C5 on C6. Otherwise, there is anatomic alignment of the vertebral bodies and posterior elements. Congenital nonfusion of the posterior arch of C1. No evidence of acute fracture or subluxation. The vertebral body heights are maintained. Advanced degenerative disc disease at C3-C4. Mild to moderate degenerative disc disease at all additional cervical levels. Facet and uncovertebral joint arthropathy leads to osseous encroachment on the neural foramina at C3-C4. There is no prevertebral soft tissue swelling. The thyroid gland and remaining cervical soft tissues are within normal limits. Mild centrilobular emphysema the visualized lung apices. CT/CT cervical spine wo IV con IMPRESSION: 1. No evidence of acute intracranial hemorrhage or edematous territorial infarction. 2. No evidence of acute fracture or traumatic subluxation of the cervical spine. Moderate multilevel degenerative spondyloarthropathy of the cervical spine.
[2023-05-30 19:24] VITALS: BP 129/95; BP 137/90; PULSE 107; PULSE 111; RESP 14; TEMP 36.9; O2SAT 88; O2SAT 94; BMI 22.5
--- NOTE | 2023-05-30 19:30 | ECG_ITS ---
Test Reason : OVERDOSE Blood Pressure : / mmHG Vent. Rate : 105 BPM Atrial Rate : 105 BPM P-R Int : 138 ms QRS Dur : 098 ms QT Int : 344 ms P-R-T Axes : 052 054 051 degrees QTc Int : 454 ms Sinus tachycardia Septal infarct (cited on or before 15-APR-2023) Abnormal ECG When compared with ECG of 15-APR-2023 22:19, Questionable change in initial forces of Septal leads Referred By: Generic ED Physician Electronically Signed By:CONCHIS FLOWERS MD
--- NOTE | 2023-05-30 19:43 | PC.NURSE ---
Addendum entered by Lynne Bonilla RN 05/30/23 19:50: Upon further assessment pt also has abrasion to L-knee Original Note: Pt arrived via [employer], unknown substance use. pt has c-collar, bluish residue on his nose. AMS, slow garbled speech. Pupils 4mm, swelling to R-cheek. Security assisted to changge over and belongings collected. IV #20 L-forearm placed, labs sent. further orders and dispo pending.
[2023-05-30 19:48] LABS: Basophils Percent Auto 0.2 % (0-2); Eosinophils Percent Auto 0.2 % (0-4); Hematocrit 49.1 % (42.0-52.0); Hemoglobin 16.5 g/dl (14.0-18.0); Imm Gran Abs Auto 0.01 X10*3/uL (0.00-0.03); Imm Gran Pct Auto 0.2 % (0.0-0.4); Lymphocytes Absolute Auto 1.9 X10*3/uL (1.2-4.9); Lymphocytes Percent Auto 37.6 % (20-40); MANUAL DIFF FLAG NO; Mean Corpuscular HGB Conc 33.6 g/dl (31.0-36.0); Mean Corpuscular Volume 86.4 fL (80.0-98.0); Mean Platelet Volume 9.3 fL (9.4-12.4); Monocytes Absolute Auto 0.4 X10*3/uL (0.1-1.2); Monocytes Percent Auto 8.6 % (2-11); Neutrophils Absolute Auto 2.7 x10*3/uL (2.0-8.3); Neutrophils Percent Auto 53.2 % (45-73); Platelet Count 209 X10*3/uL (160-400); Red Blood Count 5.68 X10*6/uL (4.60-5.80); Red Cell Distribution Width 15.4 % (11.0-16.0); White Blood Count 5.1 X10*3/uL (4.8-10.8)
[2023-05-30 20:04] LABS: Alanine Aminotransferase 106 U/L (0-40); Albumin Level 4.5 g/dL (3.5-5.0); Alkaline Phosphatase 111 U/L (39-117); Anion Gap 20 (12-20); Aspartate Amino Transferase 84 U/L (5-37); Bilirubin Total 0.4 mg/dL (0.0-1.0); Blood Urea Nitrogen 15 mg/dL (9-16); Calcium 10.1 mg/dL (8.4-10.2); Carbon Dioxide 23 mmol/L (22-29); Chloride 104 mmol/L (96-108); Creatinine Clr Calc Pharmacy 112.7; Estimated Glomerular Filt Rate > 60; Ethanol 372 mg/dL; Glucose Random 129 mg/dL (60-115); Sodium 143 mmol/L (135-145); Total Protein 8.8 g/dL (6.5-8.0)
[2023-05-30 20:13] LABS: Troponin-I High Sensitivity < 2.7 ng/L (<3.5-35.0)
[2023-05-30 20:27] VITALS: BP 129/95; PULSE 106; RESP 14; O2SAT 96
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
[2023-05-30 22:00] VITALS: BP 126/90; PULSE 101; RESP 13; TEMP 36.9; O2SAT 97
--- NOTE | 2023-05-30 22:09 | PC.NURSE ---
Pt removed c-collar on his own. aware, awaiting scans.
[2023-05-31 00:47] VITALS: BP 116/84; PULSE 94; RESP 19; TEMP 36.9; O2SAT 96
[2023-05-31] MEDS: Ibuprofen 600 MG TABLET PO (00:55)
--- NOTE | 2023-05-31 03:35 | PC.NURSE ---
Pt ambulatory to the bathroom. Refused urine specimen.
--- NOTE | 2023-05-31 03:35 | MHC.EDTECH ---
pt woke up to use bathroom, refusing to give urine sample. AMI linares.
[2023-05-31 03:39] VITALS: BP 129/87; PULSE 99; RESP 18; O2SAT 93
[2023-05-31 07:14] VITALS: BP 122/77; PULSE 92; RESP 18; TEMP 36.8; O2SAT 95
--- NOTE | 2023-05-31 07:16 | PC.NURSE ---
pt a&ox3, vss, nsr on the surveillance monitor, pt states a 7/10 pain level for back pain and 4/10 pain level in his head, pt states that he is feeling very anxious and would like medication to relieve these symptoms, also requesting pain meds for back, CIWA core = 3, pt lying comfortably with the lights dimmed and watching television, call lundy placed within reach, will continue to monitor.
== END 2023-05-31 07:50 | disposition home or self-care (01) ==
PROVIDERS: Emergency Provider Emergency Medicine; PCP Internal Medicine
DX: F10.120 Alcohol abuse with intoxication, uncomplicated (principal); Y90.8 Blood alcohol level of 240 mg/100 ml or more; S00.81XA Abrasion of other part of head, initial encounter; X58.XXXA Exposure to other specified factors, initial encounter; Y93.9 Activity, unspecified; Y92.410 Unspecified street and highway as the place of occurrence of the external cause; Y99.9 Unspecified external cause status; F12.90 Cannabis use, unspecified, uncomplicated; Z79.899 Other long term (current) drug therapy
CPT/HCPCS: 36415; 70450; 72125; 80053; 80307; 84484; 85025; 93005; 99285

== ENCOUNTER → 2023-05-30 19:30 | Outpatient (BNV) | payer OTHER, SELFPAY | PROVIDERS: Emergency Provider Emergency Medicine; PCP Internal Medicine; Visit Provider Internal Medicine Cardiovascular Disease | DX: R00.0 Tachycardia, unspecified (principal) | CPT/HCPCS: 93010 ==

== ENCOUNTER 2023-05-31 17:41 | Emergency (ER) | payer OTHER, SELFPAY ==
[2023-05-31 17:53] VITALS: BP 157/106; PULSE 114; O2SAT 95
[2023-05-31 18:34] VITALS: BP 147/80; PULSE 108; RESP 17; TEMP 36.9; O2SAT 90; BMI 22.5
[2023-05-31 18:44] VITALS: BP 125/59; PULSE 106; RESP 19; TEMP 36.9; O2SAT 93
[2023-05-31 18:54] VITALS: RESP 21; O2SAT 97
--- NOTE | 2023-05-31 19:12 | ED.ALCOHOL ---
HPI - Alcohol General Chief Complaint: ETOH/Substance Use Stated Complaint: UNDER THE INFLUENCE Time Seen by Provider: 05/31/23 18:54 Source: patient and EMS Mode of arrival: EMS Limitations: no limitations History of Present Illness HPI narrative: 58-year-old male came in by ambulance for alcohol intoxication. Patient drank at 10 nebs of heavy liquor today then he passed out 911 was called by bystander and brought to the hospital, patient declined any fall or head injury patient was seen in the emergency department yesterday had head CT for head injury. Patient also did not take 12 mg of Suboxone today or his stool mg of Klonopin for seizures. Patient otherwise complains of no CP or SOB or abdominal pain or nausea or vomiting or diarrhea. Related Data Previous Rx's Medication Instructions Recorded ibuprofen 600 mg tablet 600 mg PO Q6H PRN fever or pain 04/12/23 #30 tabs Allergies Allergy/AdvReac Type Severity Reaction Status Date / Time acetaminophen Allergy Unknown Unknown Verified 05/31/23 18:43 [Tylenol-Codeine #3] codeine [Tylenol-Codeine #3] Allergy Unknown Unknown Verified 05/31/23 18:43 Review of Systems Review of Systems: All other systems are reviewed and are negative Constitutional: Reports as per HPI and Reports no additional constitutional complaints Eyes: Reports as per HPI and Reports no additional eye complaints Reports system reviewed and no additional complaints, except as documented Cardiovascular: Reports as per HPI and Reports no additional cardiovascular complaints Respiratory: Reports as per HPI and Reports no additional respiratory complaints Gastrointestinal: Reports as per HPI and Reports no additional gastrointestinal complaints Genitourinary: Reports no additional female genitourinary complaints Musculoskeletal: Reports no additional musculoskeletal complaints Skin/Breast: Reports system reviewed and no additional complaints, except as docu Psychiatric: Reports no additional psychiatric complaints Endocrine: Reports no additional endocrine complaints Hematologic/Lymphatic: Reports no additional hematologic/lymphatic complaints Allergic/Immunologic: Reports no additional allergic/immunologic complaints Reports system reviewed and no additional complaints, except as documented and Reports Abnormal speech present PMFSH Past Medical History Medical History Alcohol abuse Social History Social History Alcohol intake: current Alcohol intake frequency: 3 or more drinks per day Alcohol type: beer and hard liquor Smoked in Last 30 Days: Yes Substance Use Type: Marijuana Advance Directives: No Advance Directives Information Provided: Yes Physical Exam ED Vital Signs: Vital Signs - 24 hr 05/31/23 18:34 05/31/23 18:44 05/31/23 18:54 Temperature 98.4 F 98.4 F Pulse Rate 108 H 106 H Respiratory Rate 17 19 21 H Blood Pressure 147/80 H 125/59 L Pulse Oximetry 90 L 93 97 Oxygen Delivery Method Room Air Room Air Room Air BMI result Body Mass Index 22.5 Vital signs have been reviewed as appeared to be correct. Blood pressure normal. Heart rate normal. Respiration rate normal. Temperature normal. Oxygen saturation normal. Appearance: Alcohol on breath, disheveled, Alert. Oriented X3. No acute distress. Head: Normal external exam. Normocephalic. Atraumatic. No Arauz signs noted. No raccoon eyes noted Eyes: PERRLA. EOMI. Conjunctiva and sclera normal. Eyelids normal. ENT: TM's Normal. Pharynx normal. Uvula midline. Moist mucous membranes. No trismus noted. No drooling noted. No muffled voice noted. Neck: Normal inspection. Neck supple. FROM. No adenopathy. Thyroid Normal. No meningeal signs. No neck mass noted. CVS: Normal heart rate and rhythm. Heart sound normal. No murmurs noted. Pulses normal throughout. Respiratory: No respiratory distress. Painless inspiration. Breath sounds normal. No wheezes/rales/rhonchi noted. Chest nontender. No accessory muscle usage noted or decreased air movement noted. Abdomen: Soft and nontender. Bowel sounds normal in all 4 quadrants. No distention noted. No organomegaly noted. No visible injury noted. Back: No CVA tenderness. Full range of motion noted. Skin: Skin warm and dry. Normal skin color. Normal skin turgor. No rashes/lesions/lacerations noted. Extremities: No lower extremity edema. Extremities exhibit normal range of motion. Extremities nontender. Neuro: Oriented X 3. Cranial nerve exam: II-XII are grossly intact No motor deficit. No sensory deficit. Reflexes normal. Course Reevaluation(s) Reevaluation #1: Will start physician observation till sobriety, will give Suboxone and Klonopin, and check labs. Time: 19:16 Medical Decision Making Differential Diagnosis Differential Diagnoses: The differential diagnosis associated with the presentation includes (Alcohol intoxication, electrolyte abnormalities, Suboxone withdrawal.) Admission/Observation Consideration of admission/observation: Escalation of care including admission/observation considered Lab Data MDM Lab Attestation statement: I reviewed the patient's lab results. Discharge Plan Discharge Clinical Impression: Alcohol intoxication Patient Disposition: Still a Patient Prescriptions: No Action ibuprofen 600 mg tablet 600 mg PO Q6H PRN (Reason: fever or pain) Qty: 30 0RF
[2023-05-31] MEDS: Buprenorphine/Naloxone 12/3 mg FILM 1 FILM SUBLINGUAL (19:19)
[2023-05-31] MEDS: clonazePAM 1 MG TABLET 2 MG PO (19:19)
--- NOTE | 2023-05-31 19:20 | PC.NURSE ---
dr wayne came to bedside to assess- pt slurring words, states drank 10 nips today last drink approx 0900 per pt report. giving klonopin/suboxone per order as pt stated to md has not had either today. alert, oriented.
--- NOTE | 2023-05-31 19:39 | MHC.EDTECH ---
this blog writer attempted to draw labs patient refusing. saying No Fucking blood draws
--- NOTE | 2023-05-31 19:47 | PC.NURSE ---
belongings placed in decon/security by security
--- NOTE | 2023-05-31 19:50 | PC.NURSE ---
pt declined blood work/iv multiple times- md wayne notified.
--- NOTE | 2023-05-31 19:51 | PC.NURSE ---
scoring on cows/mary monet to bed to eval- given suboxone/klonopin
[2023-05-31 20:17] VITALS: BP 142/90; PULSE 105; RESP 18; O2SAT 96
[2023-05-31 20:41] LABS: MANUAL DIFF FLAG NO
[2023-05-31 20:42] LABS: Basophils Percent Auto 0.3 % (0-2); Eosinophils Percent Auto 0.1 % (0-4); Hematocrit 47.6 % (42.0-52.0); Hemoglobin 16.1 g/dl (14.0-18.0); Imm Gran Abs Auto 0.02 X10*3/uL (0.00-0.03); Imm Gran Pct Auto 0.3 % (0.0-0.4); Lymphocytes Absolute Auto 2.9 X10*3/uL (1.2-4.9); Lymphocytes Percent Auto 42.4 % (20-40); Mean Corpuscular HGB Conc 33.8 g/dl (31.0-36.0); Mean Corpuscular Hemoglobin 29.1 pg (27.0-33.0); Mean Corpuscular Volume 86.1 fL (80.0-98.0); Mean Platelet Volume 8.8 fL (9.4-12.4); Monocytes Absolute Auto 0.7 X10*3/uL (0.1-1.2); Monocytes Percent Auto 9.8 % (2-11); Neutrophils Absolute Auto 3.3 x10*3/uL (2.0-8.3); Neutrophils Percent Auto 47.1 % (45-73); Platelet Count 196 X10*3/uL (160-400); Red Blood Count 5.53 X10*6/uL (4.60-5.80); Red Cell Distribution Width 15.4 % (11.0-16.0); White Blood Count 6.9 X10*3/uL (4.8-10.8)
[2023-05-31 20:48] VITALS: TEMP 36.4
[2023-05-31 20:58] LABS: Ethanol 324 mg/dL
[2023-05-31 21:00] LABS: Alanine Aminotransferase 98 U/L (0-40); Albumin Level 4.3 g/dL (3.5-5.0); Alkaline Phosphatase 104 U/L (39-117); Anion Gap 16 (12-20); Aspartate Amino Transferase 76 U/L (5-37); Bilirubin Direct 0.2 mg/dL (0.0-0.5); Bilirubin Total 0.3 mg/dL (0.0-1.0); Blood Urea Nitrogen 11 mg/dL (9-16); Calcium 9.6 mg/dL (8.4-10.2); Carbon Dioxide 28 mmol/L (22-29); Chloride 102 mmol/L (96-108); Creatinine Clr Calc Pharmacy 108.7; Estimated Glomerular Filt Rate > 60; Glucose Random 113 mg/dL (60-115); Lipase 33 U/L (8-78); Potassium 3.6 mmol/L (3.3-5.1); Sodium 142 mmol/L (135-145); Total Protein 8.3 g/dL (6.5-8.0)
--- NOTE | 2023-06-01 00:23 | PC.NURSE ---
sleepinig comfortably, no distress. waiting sobriety. cont to reinforce safety and monitor.
[2023-06-01 00:32] VITALS: RESP 18
[2023-06-01] MEDS: QUEtiapine Fumarate 400 MG TABLET PO (02:23)
[2023-06-01 02:25] VITALS: BP 116/73; PULSE 90; RESP 18; O2SAT 93
[2023-06-01 04:57] LABS: Appearance Urine Cloudy; Color Urine Yellow; Glucose Urine UA Negative (Negative); Leukocyte Esterase Urine Negative (Negative); Nitrite Urine Negative (Negative); PH 5.5 (5.0-9.0); Specific Gravity - Urine 1.025 (1.005-1.025); UMIC TRIGGER UACC YES; Urine Blood Negative (Negative); Urine Ketones Negative (Negative); Urine Protein 100 (2+) mg/dL (Neg-Trace)
[2023-06-01 05:12] LABS: Amphetamine Screen Urine Not Detected (Not Detect); Barbiturates, Urine Not Detected (Not Detect); Benzodiazepines Screen Urine POSITIVE (Not Detect); Cannabinoid Screen Urine Not Detected (Not Detect); Cocaine Screen Urine Not Detected (Not Detect); Fentanyl, urine POSITIVE (Not Detect); Opiate Screen Urine Not Detected (Not Detect); Phencyclidine Screen Urine Not Detected (Not Detect)
[2023-06-01 05:16] LABS: Bacteria Urine None Seen (None Seen); Granular Casts Urine Present; Hyaline Casts Urine >20 /LPF (0-2); RBC Urine 0-2 /HPF (0-2); WBC Urine 0-5 /HPF (0-5)
== END 2023-06-01 06:00 | disposition home or self-care (01) ==
PROVIDERS: Emergency Provider Emergency Medicine
DX: F10.129 Alcohol abuse with intoxication, unspecified (principal); Y90.8 Blood alcohol level of 240 mg/100 ml or more; Z79.899 Other long term (current) drug therapy
CPT/HCPCS: 36415; 80048; 80076; 80307; 81001; 81003; 83690; 85025; 99285